=== PATIENT | female | born 1995 | race Caucasian/White ===

== ENCOUNTER 2024-12-03 07:46 | Outpatient (CLI) | payer OTHER, SELFPAY | END 2024-12-03 07:47 | disposition home or self-care (01) | LOC: AMB 12-16 15:02 | PROVIDERS: Visit Provider Family Medicine | DX: R07.89 Other chest pain (principal); R20.0 Anesthesia of skin; R42 Dizziness and giddiness | CPT/HCPCS: A0998 ==